=== PATIENT | male | born 1995 ===

== ENCOUNTER 2018-09-01 00:54 | Emergency (ER) | payer SELFPAY ==
[2018-09-01 01:07] VITALS: BMI 18.4
[2018-09-01 01:08] VITALS: RESP 18; TEMP 98.2
[2018-09-01] MEDS ORDERED: Sodium Chloride 0.9% 1,000 ML IV STA (01:17)
--- NOTE | 2018-09-01 01:24 | ED PDOC ---
Arrival/HPI - General Chief Complaint: Abdominal Pain Time Seen by Provider: 09/01/18 00:57 Historian: Patient - History of Present Illness Narrative History of Present Illness (Text): 09/01/18 01:18 22 year old male, with no significant past medical history, presents to the emergency department complaining of bilateral flank pain for the past couple months. Patient states he was seen and evaluated in [facility] where he had imaging done which he states were normal. Patient denies any fever, chills, chest pain, shortness of breath, nausea, vomiting, diarrhea, urinary symptoms, neck pain, headache, dizziness, or any other complaints. Time/Duration: Other (couple months) Symptom Onset: Gradual Symptom Course: Unchanged Activities at Onset: Light Context: Home Past Medical History - Provider Review Nursing Documentation Reviewed: Yes - Infectious Disease Hx of Infectious Diseases: None - Psychiatric Hx Substance Use: Yes Other/Comment: ETOH abuse - Anesthesia Hx Anesthesia: No Family/Social History - Physician Review Nursing Documentation Reviewed: Yes Family/Social History: No Known Family HX Smoking Status: Never Smoked Hx Alcohol Use: Yes Frequency of alcohol use: Daily Hx Substance Use: Yes Substance used: marijuana Allergies/Home Meds Allergies/Adverse Reactions: Allergies No Known Allergies Allergy (Verified 09/01/18 01:06) Home Medications: Home Meds Medication Instructions Recorded Confirmed RX: No Known Home Med 09/01/18 09/01/18 Review of Systems - Physician Review All systems were reviewed & negative as marked: Yes - Review of Systems Constitutional: absent: Fevers, Other (Chills) Respiratory: absent: SOB Cardiovascular: absent: Chest Pain Gastrointestinal: absent: Diarrhea, Nausea, Vomiting Musculoskeletal: Back Pain. absent: Neck Pain Neurological: absent: Headache, Dizziness Physical Exam Vital Signs Reviewed: Yes Vital Signs Temp Pulse Resp BP Pulse Ox 09/01/18 01:07 98.2 F 109 H 18 154/95 H 97 Temperature: Afebrile Blood Pressure: Hypertensive Pulse: Tachycardic Respiratory Rate: Normal Appearance: Positive for: Well-Appearing, Non-Toxic, Comfortable Pain Distress: None Mental Status: Positive for: Alert and Oriented X 3 - Systems Exam Head: Present: Atraumatic, Normocephalic Pupils: Present: PERRL Extroacular Muscles: Present: EOMI Conjunctiva: Present: Normal Mouth: Present: Moist Mucous Membranes Neck: Present: Normal Range of Motion Respiratory/Chest: Present: Clear to Auscultation, Good Air Exchange. No: Respiratory Distress, Accessory Muscle Use Cardiovascular: Present: Regular Rate and Rhythm, Normal S1, S2. No: Murmurs Abdomen: Present: Tenderness (Epigastric tenderness). No: Distention, Peritoneal Signs Back: Present: Normal Inspection Upper Extremity: Present: Normal Inspection. No: Cyanosis, Edema Lower Extremity: Present: Normal Inspection. No: Edema Neurological: Present: GCS=15, CN II-XII Intact, Speech Normal Skin: Present: Warm, Dry, Normal Color. No: Rashes Psychiatric: Present: Alert, Oriented x 3, Normal Insight, Normal Concentration Medical Decision Making ED Course and Treatment: 09/01/18 01:18 Impression: 22 year old male presents complaining of bilateral flank pain for the past couple of months. ?msk pain ro renal colic vs uti/pyelo. Plan: -- CT Abd & Pelvis no contrast -- Labs -- Protonix Inj, IV fluids, Zofran Inj -- Urinalysis -- Reassess and disposition Progress Notes: EXAM: CT Abd and Pelvis Electronically signed on Sep 01, 2018 3:51:19 AM EDT by: Feliberto Rodriguez M.D IMPRESSION: Normal unenhanced CT of the abdomen and pelvis. 09/01/18 03:55 On reevaluation the patient feels better and is in no acute distress. I have discussed the results and plan with the patient, who expresses understanding. Patient given the opportunity to ask question, all questions were answered and there is agreement with the plan to discharge. Patient is stable for discharge. Patient was instructed to follow up with physician/clinic in 1-2 days or return if symptoms persist/worsen or new concerning symptoms arise. 09/01/18 06:52 pt observed in er in nad notified of microscopic hematuria. advise outpt fu. steady gait no tremors. neuro intact. 09/01/18 06:53 - Lab Interpretations I have reviewed the lab results: Yes - RAD Interpretation Radiology Orders: 09/01/18 01:17 ABD & PELVIS W/O PO OR IV CONT [CT] Stat - Scribe Statement The provider has reviewed the documentation as recorded by the Patrick Weeks Provider Scribe Attestation: All medical record entries made by the Scribe were at my direction and personally dictated by me. I have reviewed the chart and agree that the record accurately reflects my personal performance of the history, physical exam, medical decision making, and the department course for this patient. I have also personally directed, reviewed, and agree with the discharge instructions and disposition. Disposition/Present on Arrival - Present on Arrival Any Indicators Present on Arrival: No History of DVT/PE: No History of Uncontrolled Diabetes: No Urinary Catheter: No History of Decub. Ulcer: No History Surgical Site Infection Following: None - Disposition Have Diagnosis and Disposition been Completed?: Yes Diagnosis: Abdominal pain Disposition: HOME/ ROUTINE Disposition Time: 04:00 Condition: STABLE Discharge Instructions (ExitCare): Acute Abdomen (Belly Pain), Adult (DC) Additional Instructions: please follow up withyour doctor/clinic and specialists. you may need further testing as an outpatient. plese discuss your urine results and lab tests with the specialists. Referrals: [facility] [Outside] - Follow up with primary [facility] at [facility] [Outside] - Follow up with primary Denzel Feliciano MD [Staff Provider] - Follow up with primary José Schroeder MD [Staff Provider] - Follow up with primary Forms: [employer] ([place])
[2018-09-01 01:45] LABS: ALB/GLOB RATIO 1.1 (1.1-1.8); ALBUMIN 4.7 g/dL (3.0-4.8); ALT/SGPT 20 U/L (7-56); AST/SGOT 39 U/L (17-59); BILIRUBIN,DIRECT 0.2 mg/dL (0.0-0.4); BLOOD UREA NITROGEN 17 mg/dL (7-21); CALCIUM 9.4 mg/dL (8.4-10.5); GFR NON-AFRICAN AMERICAN > 60; LIPASE 53 U/L (23-300)
[2018-09-01 01:46] LABS: BASO # 0.03 K/mm3 (0.0-2.0); BASO % 0.3 % (0.0-3.0); EOS # 0.1 (0.0-0.7); EOS % 0.9 % (1.5-5.0); GRAN # 6.29 (1.4-6.5); GRAN % 71.8 % (50.0-68.0); HEMOGLOBIN 16.3 g/dL (14.0-18.0); LYMPH # 1.7 (1.2-3.4); LYMPH % 18.9 % (22.0-35.0); MEAN CELL VOLUME 81.6 fl (80.0-105.0); MEAN CORPUSCULAR HEMOGLOBIN 27.7 pg (25.0-35.0); MEAN PLATELET VOLUME 9.6 fl (7.0-11.0); MONO # 0.7 (0.1-0.6); MONO % 8.1 % (1.0-6.0); RBC 5.88 10^6/uL (3.5-6.1); RED CELL DISTRIBUTION WIDTH 13.9 % (11.5-14.5); WHITE BLOOD COUNT 8.8 10^3/ul (4.5-11.0)
[2018-09-01 01:50] LABS: INR 1.23; PROTHROMBIN TIME 14.1 SECONDS (9.4-12.5); URINE BILIRUBIN NEGATIVE (NEGATIVE); URINE BLOOD MODERATE (NEGATIVE); URINE GLUCOSE (UA) NEGATIVE (NEGATIVE); URINE LEUKOCYTE ESTERASE NEGATIVE Leu/uL (NEGATIVE); URINE PROTEIN 30 mg/dL (<30 mg/dL)
[2018-09-01 01:53] LABS: URINE APPEARANCE CLEAR (CLEAR); URINE COLOR YELLOW (YELLOW)
[2018-09-01 02:21] LABS: URINE BACTERIA MOD (NEG); URINE EPITHELIAL CELLS 0 - 2 /hpf (0-5)
[2018-09-01 04:49] VITALS: BP 134/91; PULSE 95; O2SAT 100
--- NOTE | 2018-09-01 10:01 | CT ---
Date of service: 09/01/2018 PROCEDURE: CT Abdomen and Pelvis without intravenous contrast HISTORY: b/l flank pain COMPARISON: None. TECHNIQUE: Without contrast.. Contrast dose: 0 Radiation dose: Total exam DLP = 250.98 mGy-cm. This CT exam was performed using one or more of the following dose reduction techniques: Automated exposure control, adjustment of the mA and/or kV according to patient size, and/or use of iterative reconstruction technique. FINDINGS: LOWER THORAX: Unremarkable. LIVER: Unremarkable. No gross lesion or ductal dilatation. GALLBLADDER AND BILE DUCTS: Unremarkable. PANCREAS: Unremarkable. No gross lesion or ductal dilatation. SPLEEN: Unremarkable. ADRENALS: Unremarkable. No mass. KIDNEYS AND URETERS: No renal calculus. No hydronephrosis. No renal mass. VASCULATURE: Unremarkable. No aortic aneurysm. BOWEL: Minimal sigmoid diverticulosis. No evidence of diverticulitis. No other abnormal bowel loops. No bowel obstruction APPENDIX: Unremarkable. Normal appendix. PERITONEUM: Unremarkable. No free fluid. No free air. LYMPH NODES: Unremarkable. No enlarged lymph nodes. BLADDER: Unremarkable. REPRODUCTIVE: Normal prostate BONES: No acute fracture. OTHER FINDINGS: None. IMPRESSION: No acute abnormality. No evidence of urinary calculus or urinary tract obstruction. The preliminary findings for this examination were reported by [facility] at 3:51 a.m. on 09/01/2018. There is concurrence of this report with the preliminary findings.
== END 2018-09-01 04:00 | disposition home or self-care (01) ==
LOC: MERGE 00:54 → ED 00:54
DX: R10.9 Unspecified abdominal pain (principal)
CPT/HCPCS: 74176; 80053; 81001; 82248; 83690; 83735; 85025; 85610; 85730; 96361; 96374; 96375; 99283; C9113; J2405; J7030

== ENCOUNTER 2018-09-23 23:30 | Emergency (ER) | payer SELFPAY ==
[2018-09-23 23:30] VITALS: BMI 18.4
[2018-09-23 23:49] VITALS: TEMP 98.8; O2SAT 97
[2018-09-24] MEDS ORDERED: TDAP Vaccine 0.5 mL Syr IM ONE (00:04)
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
[2018-09-24] MEDS ORDERED: Sodium Chloride 0.9% 1,000 ML IV STA (01:48)
[2018-09-24 06:27] VITALS: BP 116/72; PULSE 79; RESP 16
--- NOTE | 2018-09-24 09:09 | CT ---
Date of service: 09/24/2018 PROCEDURE: CT Cervical Spine without contrast HISTORY: neck pain COMPARISON: None available. TECHNIQUE: Axial computed tomography images were obtained of the cervical spine without the use of intravenous contrast. Coronal and sagittal reformatted images were created and reviewed. Radiation dose: Total exam DLP = 528.63 mGy-cm. This CT exam was performed using one or more of the following dose reduction techniques: Automated exposure control, adjustment of the mA and/or kV according to patient size, and/or use of iterative reconstruction technique. FINDINGS: VERTEBRAE: No fracture. Normal alignment. No destructive bony lesion. DISCS/SPINAL CANAL/NEURAL FORAMINA: No significant central canal or neural foraminal stenosis. Discs heights are grossly preserved. PARASPINAL SOFT TISSUES: Unremarkable. OTHER FINDINGS: The report concurs with the preliminary [facility] report IMPRESSION: Unremarkable CT of the cervical spine.
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
--- NOTE | 2018-09-24 09:12 | CT ---
Date of service: 09/24/2018 PROCEDURE: CT HEAD WITHOUT CONTRAST. HISTORY: headache COMPARISON: None available. TECHNIQUE: Axial computed tomography images were obtained through the head/brain without intravenous contrast. Radiation dose: Total exam DLP = 830.08 mGy-cm. This CT exam was performed using one or more of the following dose reduction techniques: Automated exposure control, adjustment of the mA and/or kV according to patient size, and/or use of iterative reconstruction technique. FINDINGS: HEMORRHAGE: No intracranial hemorrhage. BRAIN: No mass effect or edema. No atrophy or chronic microvascular ischemic changes. VENTRICLES: Unremarkable. No hydrocephalus. CALVARIUM: Unremarkable. PARANASAL SINUSES: Unremarkable as visualized. No significant inflammatory changes. MASTOID AIR CELLS: Unremarkable as visualized. No inflammatory changes. OTHER FINDINGS: The report concurs with the preliminary [facility] report IMPRESSION: No acute intracranial findings
== END 2018-09-24 06:26 | disposition home or self-care (01) ==
LOC: ED 23:30
DX: R51 Headache (principal); T14.8XXA Other injury of unspecified body region, initial encounter; W17.81XA Fall down embankment (hill), initial encounter; F17.210 Nicotine dependence, cigarettes, uncomplicated; Z23 Encounter for immunization
CPT/HCPCS: 70450; 70486; 72125; 90471; 90715; 96360; 99284; J7030